=== PATIENT | male | born 1990 | race Caucasian/White ===

== ENCOUNTER 2016-12-14 15:59 | Emergency (ER) | payer BC ==
[~2016-12-14] VITALS: Ht 185.4 cm; Wt 95.3 kg
--- NOTE | 2016-12-14 16:32 | ER.PDOC ---
General Chief Complaint: General Complaint Stated Complaint: DIZZINESS,LIGHT HEADED TRAVEL OUT OF US: No Time seen by MD: 16:30 Source: patient Exam Limitations: no limitations History of Present Illness Initial Comments c/o weak dizzy Timing/Duration: 24 hours Severity: mild Modifying Factors: improves with cold therapy Associated Symptoms: denies symptoms Allergies: Coded Allergies: banana (Verified Allergy, Severe, THROAT ITCHING, 12/04/15) Home Meds No Active Prescriptions or Reported Meds Past Medical History Medical History: asthma Surgical History: no surgical history Family History Significant Family History: no pertinent family hx Social History Smoking: cigarettes, chew Alcohol Use: occassionally Drug Use: none Review of Systems Constitutional: denies fever EENTM: denies eye pain Respiratory: denies cough Cardiovascular: denies chest pain Gastrointestinal: denies abdominal pain Musculoskeletal: denies back pain All Other Systems: Reviewed and Negative Physical Exam General Appearance: No Apparent Distress, WD/WN EENT: eyes nml inspection, nml ENT inspection Neck: Non-Tender, Full Range of Motion Respiratory: chest non-tender, lungs clear CVS: reg rate & rhythm, no murmur Gastrointestinal: Normal Bowel Sounds Neurologic/Psychiatric: supervisor lens generating II-XII NML as Tested, No Motor/Sensory Deficits, Motor Weakness Skin: Normal Color, Warm/Dry Lymphatic: No Adenopathy Results/Orders Results/Orders Laboratory Tests Test 12/14/16 16:45 White Blood Count 9.0 10^3/uL (4.5-11.0) Red Blood Count 4.93 10^6/uL (4.50-5.90) Hemoglobin 15.1 g/dL (13.9-16.3) Hematocrit 44.1 % (37.0-53.0) Mean Corpuscular Volume 89.5 fL (78-100) Mean Corpuscular Hemoglobin 30.6 pg (26-34) Mean Corpuscular Hemoglobin Concent 34.2 g/dL (33-37) Red Cell Distribution Width 12.0 % (11.5-14.5) Platelet Count 316 10^3/uL (150-400) Mean Platelet Volume 8.9 fL (7.8-11.0) Neutrophils (%) (Auto) 60.6 % (41.0-85.0) Lymphocytes (%) (Auto) 25.6 % (24.0-44.0) Monocytes (%) (Auto) 8.8 % (5.0-12.0) Neutrophils # (Auto) 5.5 10^3/uL (1.8-7.7) Lymphocytes # (Auto) 2.3 10^3/uL (1.0-4.8) Monocytes # (Auto) 0.8 10^3/uL (0.3-0.8) Absolute Immature Granulocyte (auto 0.04 10^3 u/L (0-2) Eosinophils % 4.2 % (0.0-5.0) Basophils % 0.4 % (0.0-0.2) Basophils # 0.0 10^3/uL (0.0-0.1) Nucleated Red Blood Cells 0 % (0-0) Eosinophil Count 0.4 10^3/uL (0.0-0.2) Urine Collection Type UNKNOWN Urine Color YELLOW (YELLOW) Urine Appearance CLEAR (CLEAR) Urine Bilirubin NEGATIVE MG/DL (NEGATIVE) Urine Ketones NEGATIVE (NEGATIVE) Urine Specific [place] 1.010 (1.005-1.035) Urine pH 7 (5.0-6.0) Urine Protein NEGATIVE (NEGATIVE) Urine Urobilinogen NORMAL (NEGATIVE) Urine Nitrate NEGATIVE (NEGATAIVE) Urine Leukocyte Esterase NEGATIVE (NEGATIVE) Urine Blood NEGATIVE (NEGATIVE) Urine Glucose NORMAL (NEGATIVE) Sodium Level 142 mmol/L (132-145) Potassium Level 4.0 mmol/L (3.6-5.2) Chloride Level 103.0 mmol/L (96-109) Carbon Dioxide Level 28.5 mmol/L (20.0-32) Anion Gap 14.5 Blood Urea Nitrogen 15 mg/dL (7-18) Creatinine 1.14 mg/dL (0.59-1.40) Estimated GFR () 94.0 (>/=60) BUN/Creatinine Ratio 13.0 Glucose Level 104 mg/dL (70-110) Calcium Level 9.4 mg/dL (8.4-10.5) Total Bilirubin 0.5 mg/dL (0.2-1.0) Aspartate Amino Transf (AST/SGOT) 19 U/L (0-35) Alanine Aminotransferase (ALT/SGPT) 32 U/L (12-78) Alkaline Phosphatase 90 U/L (50-136) Total Protein 8.6 g/dL (6.4-8.2) Albumin 4.1 g/dL (3.4-5.0) Globulin 4.5 Opiates Screen NEGATIVE (NEGATIVE) Barbiturate Screen NEGATIVE (NEGATIVE) Urine Tricyclic Antidepressants NEGATIVE (NEGATIVE) Phencyclidine (PCP) Screen NEGATIVE (NEGATIVE) Amphetamines Screen NEGATIVE (NEGATIVE) Benzodiazepines Screen NEGATIVE (NEGATIVE) Cocaine Screen NEGATIVE (NEGATIVE) Ur Tetrahydrocannabinol (THC) Scrn NEGATIVE (NEGATIVE) Percent Immature Gran (Cell Imm) 0.40 % (0.00-0.50) Administered Medications Medications (Trade) Dose Ordered Sig/Wale Route PRN Reason Start Time Stop Time Status Last Admin Dose Admin Sodium Chloride 1,000 ml @ 0 mls/hr Q0M ONCE IV 12/14/16 17:00 12/14/16 17:01 UNV 12/14/16 17:03 Progress Progress labs wnl uds neg Departure Time of Disposition: 17:32 Disposition: 01 HOME, SELF-CARE Impression: Primary Impression: Anxiety Condition: Stable Referrals: PCP,UNKNOWN (PCP) PRIMARY CARE PROVIDER Scripts No Active Prescriptions or Reported Meds FREEMAN PUGA Dr., MD Dec 14, 2016 16:32
[2016-12-14 16:48] LABS: BASOPHIL % 0.4 % (0.0-0.2); EOSINOPHIL # 0.4 10^3/uL (0.0-0.2); EOSINOPHIL % 4.2 % (0.0-5.0); HEMOGLOBIN 15.1 g/dL (13.9-16.3); LYMPHOCYTES # 2.3 10^3/uL (1.0-4.8); LYMPHOCYTES % 25.6 % (24.0-44.0); MEAN CELL HGB 30.6 pg (26-34); MEAN CELL HGB CONCENTRATION 34.2 g/dL (33-37); MEAN CORP VOLUME 89.5 fL (78-100); MEAN PLATELET VOLUME 8.9 fL (7.8-11.0); MONOCYTES # 0.8 10^3/uL (0.3-0.8); MONOCYTES % 8.8 % (5.0-12.0); NEUTROPHIL # 5.5 10^3/uL (1.8-7.7); NEUTROPHILS % 60.6 % (41.0-85.0); NUCLEATED RED BLOOD CELLS 0 % (0-0); PLATELET COUNT 316 10^3/uL (150-400)
[2016-12-14 16:49] LABS: BILIRUBIN,URINE NEGATIVE (NEGATIVE); UROBILINOGEN,URINE NORMAL (NEGATIVE)
[2016-12-14 16:54] LABS: APPEARANCE,URINE CLEAR (CLEAR); UA COLOR YELLOW (YELLOW)
[2016-12-14] MEDS ORDERED: NS 1000ML 1,000 ML ONE (17:00)
[2016-12-14 17:03] LABS: UR BENZODIAZEPINE QUAL NEGATIVE (NEGATIVE); UR COCAINE QUAL NEGATIVE (NEGATIVE)
[2016-12-14] MEDS: NS 1000ML 1,000 ML IV ONE ×2 (17:03→17:35)
[2016-12-14 17:04] LABS: CALCIUM 9.4 mg/dL (8.4-10.5); CARBON DIOXIDE 28.5 mmol/L (20.0-32)
[2016-12-14 17:38] VITALS: BP 137/82
--- NOTE | 2016-12-14 17:41 | NUR ---
DISCHARGED PT DISCHARGED FROM ED. PT UNDERSTANDS THAT HE IS HAVING ANXIETY ATTACKS AND UNDERSTANDS TO FIND A PCP WHEN PT GETS BACK TO [place]. PT ANXIETY DECREASED WHEN HE UNDERSTOOD HE WAS MEDICALLY STABLE. PT COMPLAINS OF NO PAIN OR DISCOMFORT PRIOR TO DISCHARGE. PT AMBULATED OFF OF FLOOR OFF TO PRIVATE VEHICLE.
== END 2016-12-14 17:41 | disposition home or self-care (01) ==
LOC: ER 15:59
DX: F41.9 Anxiety disorder, unspecified (principal); R42 Dizziness and giddiness; F17.210 Nicotine dependence, cigarettes, uncomplicated; J45.909 Unspecified asthma, uncomplicated
CPT/HCPCS: 36415; 80053; 80307; 81002; 85025; 99284; J7030